=== PATIENT | female | born 1940 | race Caucasian/White ===

== ENCOUNTER → 2016-05-02 | Outpatient (CLI) | payer MEDICARE, OTHER, MEDICAID ==
[~2016-05-02] MED LIST: COREG 3.123.125 MG/T; FLEXERIL5 MG PO; FOLIC ACID0.4 MG PO; INFANTS AQU400 IU/ML PO; LOPID 600M600 MG/TAB PO; NORVASC2.5 MG PO; OXYCONTIN60 MG PO; VASOTEC 5MG5 MG/TAB PO; VITAMIN D1000 IU PO; VITAMIN K0.1 MG; VITAMINE200; XANAX .25M0.25 MG/TA PO
== END ==
LOC: COL.RAD 10:54
DX: G25.2 Other specified forms of tremor (principal)
CPT/HCPCS: A9584

== ENCOUNTER 2018-10-05 20:44 | Inpatient (IN) | payer MEDICARE, OTHER, MEDICAID ==
[~2018-10-05] VITALS: Ht 144.8 cm; Wt 54.5 kg
[~2018-10-05 20:44] MED LIST changes: +ANTIVERT 25MG25 MG PO; +COMPAZINE 110 MG/TAB PO; -COREG 3.123.125 MG/T; +COREG 3.123.125 MG/T PO; +CRANBERRY 100 M1 SGL PO; +DEMADEX 20MG20 M1 PO; +FLONASEALLERGY NS; +MIACALCIN NASA3.7 ML NS; +TIKOSYN0.125 MG PO; -VITAMIN D1000 IU PO; +VITAMIN E1000 U/CAP PO; -VITAMIN K0.1 MG; +VITAMIN K0.1 MG PO; +VITAMIND3 5000 PO; +[UNRECOGNIZED DRUG - OTHER]
[2018-10-05 21:43] LABS: BASO # 0.1 (0.0-0.2); BASO % 0.4 % (0.0-2.0); EOS # 0.2 (0.0-0.7); EOS % 1.8 % (0-4.0); GRAN # 7.1 (1.4-6.5); GRAN % 57.5 % (42.2-75.2); HEMATOCRIT 38.3 % (37.0-47.0); HEMOGLOBIN 12.4 g/dl (12.5-16.0); LYMPH # 3.8 (1.2-3.4); LYMPH % 30.9 % (20.0-51.0); MEAN CELL VOLUME 94 fl (80.0-100.0); MEAN CORPUSCULAR HEMOGLOBIN 30 pg (27.0-31.0); MEAN CORPUSCULAR HGB CONC 32 g/dl (33.0-37.0); MONO # 1.1 (0.1-0.6); MONO % 8.9 % (1.7-9.3); PLATELET COUNT 437 K/mm3 (130-400); RED BLOOD COUNT 4.08 M/mm3 (4.10-5.30); REDCELL DISTRIBUTION WIDTH-CV 17.1 % (11.5-14.5)
[2018-10-05 21:52] LABS: ALANINE AMINOTRANSFERASE < 6 U/L (9-52); ALBUMIN 4.3 gm/dL (3.5-5.0); ALKALINE PHOSPHATASE 140 U/L (50-136); ANION GAP 23 mmol/L (7-16); AST,SGOT 35 U/L (15-37); BILIRUBIN,TOTAL 0.4 mg/dL (0.0-1.0); BLOOD UREA NITROGEN 62 mg/dL (7-17); CARBON DIOXIDE 22 mmol/L (22-30); CHLORIDE 95 mmol/L (98-107); CREATININE, serum 3.72 (0.52-1.25); GLUCOSE 129 mg/dL (74-106); LIPASE 157 U/L (23-300); POTASSIUM 4.9 mmol/L (3.4-5.0); SODIUM 140 mmol/L (137-145); TOTAL PROTEIN 7.8 gm/dL (6.4-8.2)
[2018-10-05 22:29] LABS: COLLECTION METHOD CATHETER
[2018-10-05] MEDS ORDERED: TAZTIA120 PO (22:31)
[2018-10-05] MEDS ORDERED: AMBIEN 5MG TABLE5 MG PO (22:32)
[2018-10-05 22:36] LABS: MUCOUS Present /lpf; PH 5 (5-8); SQUAMOUS EPITHELIAL 0-2 /hpf; URINE APPEARANCE Cloudy; URINE BACTERIA Rare /hpf; URINE BILIRUBIN Negative (NEGATIVE); URINE BLOOD Negative (NEGATIVE); URINE COLOR Amber; URINE GLUCOSE Negative (NEGATIVE); URINE KETONE Negative (NEGATIVE); URINE LEUKOCYTE ESTERASE Negative (NEGATIVE); URINE NITRATE Negative (NEGATIVE); URINE PROTEIN(semi-quant) Negative (NEGATIVE); URINE UROBILINOGEN Negative (NEGATIVE)
[2018-10-05] MEDS ORDERED: TYLENOL 325MG325 MG PO (23:44)
[2018-10-05] MEDS ORDERED: POTASSIUM (23:46)
[2018-10-05 23:52] VITALS: BP 119/60; PULSE 88; TEMP 97.5
[2018-10-05] MEDS ORDERED: CLARITIN 1010 MG/TAB PO (23:53)
[2018-10-06] VITALS (8 sets, daily range): BP systolic 96–137; BP diastolic 47–81; PULSE 71–105; TEMP 97.5–98.1
--- NOTE | 2018-10-06 | NUR ---
PT RESTING IN BED A+OX4. REPORTS NO PAIN. NO SKIN BREAKDOWN OR IRRITATION NOTED. 20G IV IN RIGHT FAC FLUSHES WELL, NO REDNESS, SWELLING. LLL FINE CRACKLES. RLL CLEAR. UPPER LOBES CLEAR. TELE ON- HEART RRR. BOWEL SOUNDS AUDIBLE THORUGHOUT, ABD SOFT. NO EDEMA NOTED. TONY DRAINING FREELY, NO KINKS, SECURED TO LEG- 10ML CLEAR YELLOW URINE NOTED. NO NEEDS AT THIS TIME. CALL LIGHT IN REACH
[2018-10-06] MEDS ORDERED: TYLENOL #4 (1 UDTAB PO (01:02)
[2018-10-06] MEDS ORDERED: TYLENOL 500MG500 MG PO (01:06)
[2018-10-06] MEDS ORDERED: XANAX 0.5MG0.5 MG PO (01:08)
[2018-10-06] MEDS ORDERED: VASOTEC 10M10 MG/TAB PO (01:09)
[2018-10-06] MEDS ORDERED: FLEXERIL 1010 MG/TAB PO (01:10)
[2018-10-06] MEDS ORDERED: LASIX 20MG TABL20 MG PO (01:12)
[2018-10-06] MEDS ORDERED: FOLIC ACID0.4 MG PO (01:14)
[2018-10-06] MEDS ORDERED: K-DUR20 MEQ PO (01:17)
--- NOTE | 2018-10-06 05:41 | NUR ---
PT RESTING IN BED A+OX4. REPORTS NO PAIN. NO SLEEP. TELE ON. IV TO THE RIGHT FA, NO SWELLING. MINIMAL OUTPUT- 160 ML OUT. TONY DRAINING FREELY, NO KINKS- SECURED TO LEG.PEDAL AND RADIAL PULSES PALPATED 2+. NO EDEMA NOTED. LEFT LOWER LUNG FINE CRACKLES. RIGHT LOWER LUNG CLEAR. UPPER LOBES BILAT CLEAR. ROOM AIR. NO NEEDS AT THIS TIME. CALL LIGHT INR EACH
--- NOTE | 2018-10-06 07:00 | NUR ---
Report received from CODY Fernandez. pT in bed resting with IVF infusing, eden gonsales, will continue to monitor.
--- NOTE | 2018-10-06 07:09 | NUR ---
report given to vicki tong
[2018-10-06 07:44] LABS: BASO % 0.5 % (0.0-2.0); EOS # 0.3 (0.0-0.7); GRAN # 3.9 (1.4-6.5); GRAN % 52.8 % (42.2-75.2); LYMPH # 2.5 (1.2-3.4); LYMPH % 33.5 % (20.0-51.0); MEAN CELL VOLUME 95 fl (80.0-100.0); MEAN CORPUSCULAR HGB CONC 32 g/dl (33.0-37.0); MEAN PLATELET VOLUME 9.3 fl (7.4-10.4); MONO # 0.7 (0.1-0.6); MONO % 8.8 % (1.7-9.3); RED BLOOD COUNT 2.94 M/mm3 (4.10-5.30); REDCELL DISTRIBUTION WIDTH-CV 16.9 % (11.5-14.5)
[2018-10-06 07:51] LABS: HEMOGLOBIN 8.9 g/dl (12.5-16.0); MEAN CORPUSCULAR HEMOGLOBIN 30 pg (27.0-31.0)
[2018-10-06 07:52] LABS: PLATELET COUNT 242 K/mm3 (130-400)
[2018-10-06 07:54] LABS: ANION GAP 13 mmol/L (7-16); BLOOD UREA NITROGEN 59 mg/dL (7-17); CALCIUM 7.4 mg/dL (8.4-10.2); CARBON DIOXIDE 21 mmol/L (22-30); CHLORIDE 104 mmol/L (98-107); CREATININE, serum 3.07 (0.52-1.25); GLUCOSE 95 mg/dL (74-106); POTASSIUM 4.4 mmol/L (3.4-5.0); SODIUM 138 mmol/L (137-145)
[2018-10-06 07:56] LABS: ACETAMINOPHEN < 10 ug/mL (10-30)
[2018-10-06 08:36] LABS: CREATININE, serum 3.07 (0.52-1.25)
--- NOTE | 2018-10-06 09:03 | NUR ---
Assessment charted. FENA pulled from catheter and sent to lab. Urine is pale yellow and clear. Pt concerned about am meds being held. Discussed creatinine clearance. Denies needs, pain, IVF to R A/C. Will continue to monitor.
[2018-10-06 09:06] LABS: FRACTIONAL EXCRETION OF NA+ 3.8 %
--- NOTE | 2018-10-06 11:50 | NUR ---
Patient lives at home alone in [place], [place] and plans to return home upon recovery. Patient receives support as needed from her local friends especially from Melisa Gardiner ([phone]) and Wanda Madrigal ([phone]). Patient uses a cane for mobility assistance, her primary care physician is Dr. Torsten Scherer and Rodolfo Warren, her pharmacy is [facility], and she does not have advance directives of healthcare on file at this time. support services manager will follow as needed and no further needs at this time.
--- NOTE | 2018-10-06 17:13 | NUR ---
Pt in bed after showering this afternoon. Feeling well, good urine output from catheter today. Friends coming to visit so patient wanted to get cleaned up. Denies needs, will give bedside shift report to nightshift nurse who will resume care.
[2018-10-06] MEDS ORDERED: ELIDEL 100G TOP (21:30)
--- NOTE | 2018-10-06 21:45 | NUR ---
Patient laying in bed upon arrival to room. IV fluids running to RAC. Patient states she takes Elidel cream for Rosacea, Aida called and order received. Patient instructed to call when she is ready for her Ambien, as she didn't want to take it yet. Catheter patent, draining clear yellow urine. Denies pain. Denies any further needs. Will continue to monitor.
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
[2018-10-07 04:13] VITALS: BP 145/74; PULSE 81; TEMP 98.3
[2018-10-07 07:31] VITALS: BP 142/74; PULSE 83; TEMP 98.3
[2018-10-07 07:48] LABS: BASO % 0.5 % (0.0-2.0); EOS # 0.3 (0.0-0.7); EOS % 3.6 % (0-4.0); GRAN # 4.6 (1.4-6.5); GRAN % 62.2 % (42.2-75.2); LYMPH # 1.8 (1.2-3.4); LYMPH % 24.4 % (20.0-51.0); MEAN CELL VOLUME 97 fl (80.0-100.0); MEAN CORPUSCULAR HGB CONC 31 g/dl (33.0-37.0); MEAN PLATELET VOLUME 9.5 fl (7.4-10.4); MONO # 0.7 (0.1-0.6); MONO % 8.8 % (1.7-9.3); PLATELET COUNT 257 K/mm3 (130-400); RED BLOOD COUNT 3.11 M/mm3 (4.10-5.30); REDCELL DISTRIBUTION WIDTH-CV 16.1 % (11.5-14.5)
[2018-10-07 07:51] LABS: HEMOGLOBIN 9.4 g/dl (12.5-16.0); MEAN CORPUSCULAR HEMOGLOBIN 30 pg (27.0-31.0)
[2018-10-07 07:54] LABS: CALCIUM 7.5 mg/dL (8.4-10.2); CREATININE, serum 1.98 (0.52-1.25); POTASSIUM 3.6 mmol/L (3.4-5.0)
--- NOTE | 2018-10-07 11:19 | NUR ---
Pt assessment complete and charted. Pt A&O. Pt denies SOB, N/V. Pt c/o some "dizziness yesterday" when walking to door with therapy. Pt c/o pain in both feet, greater in right. Pain is a stabbing/shooting/burning pain that is between big toe and second toe. Pt has pain upon flexion and extension of feet, c/o of pain when walking, states it is "new and started last night". Pt on room air. LFA IV w/ 125 ml/hr running w/ no complications. This nurse discussed w/ SOY Latham about pain in feet, they will discuss with patient. No other needs at this time.
--- NOTE | 2018-10-07 11:52 | NUR ---
This nurse arrived to pt room w/ aide in room assisting pt in bathroom, pt already on toilet. Per pt she called to go to the bathroom but "couldn't wait because I have Chron's and needed to go". Per aide and pt, pt fell on to her knees when she arrived to bathroom, masterson catheter tubing got caught up w/ walker. Walker was turned around. Pt denied any pain, no injuries noted. No witness to patient fall. SOY Latham notified, Reports filled out.
[2018-10-07 11:59] VITALS: BP 137/78; PULSE 88; TEMP 98.6
--- NOTE | 2018-10-07 12:26 | NUR ---
Pt zelalem cummings'd per orders w/ no complications. Pt administered PRN Xanax, pt is having quite a bit of anxiety since visiting with doctor. Pt apologizing for being emotional and complaining. Lunch delivered, pt set up in bed. Call light within reach and bed alarm on.
--- NOTE | 2018-10-07 13:56 | NUR ---
RT informed this nurse that pt had an abnormal EKG. Pt is getting EKG prior to amio administration and 4 hours after. This nurse notified Crys doran/ Dr. sebastian of EKG. Verbal order to give amiodarone as scheduled.
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
[2018-10-07 15:45] VITALS: BP 130/80; PULSE 81; TEMP 98.3
[2018-10-07 17:57] VITALS: BP 137/78; PULSE 88; TEMP 98.6
--- NOTE | 2018-10-07 19:05 | NUR ---
Pt up to bathroom twice this afternoon. This nurse was in room for first time. Pt did not wait second time or use call light. Bed alarm went off, aide went to room to assist. 1 output this afternoon was about 200ml. Second output unrecorded due to patient putting tp in hat. Bed alarm on and pt reminded to use call light. Aministered PRN tylenol w/ codeine. Pt c/o feet pain, rating it 10/10.
[2018-10-07 19:23] VITALS: BP 142/59; PULSE 74; TEMP 99
--- NOTE | 2018-10-07 22:15 | NUR ---
PT RESTING IN BED A+OX4. REPORTS 10/10 PAIN IN FEEL- PRN MEDS GIVEN. IV FLUSHES WELL, NO REDNESS. PEDAL AND RADIAL PULSES PALPATED. LUNGS CLEAR X4. BOWEL SOUNDS HEARD THROUGHOUT. TELE ON. AMIO GIVEN AT 1400- HOLDING NEXT DOES FOR 0000. PT REPORTS NO NEEDS AT THIS TIME. [facility]. FALL PRECAUTIONS IN PLACE. BED ARLM ON
[2018-10-08 00:05] VITALS: BP 157/80; PULSE 75; TEMP 98.1
[2018-10-08 02:08] LABS: FOLATE (FOLIC ACID) 19.3 ng/mL (7.0-31.4)
[2018-10-08 04:42] VITALS: BP 155/82; PULSE 102; TEMP 98
--- NOTE | 2018-10-08 04:55 | NUR ---
PT HAD AN UNEVENTFUL NIGHT. REPORTING 10/10 PAIN DURING NIGHT IN BILAT FEET. REPORTS "I BELIEVE IT IS GOUT, I NEED ARTHRITIS CREAM" VSS. PT ON ROOM AIR. IV FLUSHES WELL, NO REDNESS, NO SWELLING. IV FLUIDS RUNNING AT ORDERED RATE. FALL PRECAUTIONS IN PLACE, BED AALRM ON. GAIT BELT USED. WALKER USED. NON SLIP SOCKS ON. NO NEEDS AT THIS TIME. CALL LIGHT IN REACH
[2018-10-08 06:17] LABS: CALCIUM 7.9 mg/dL (8.4-10.2); CREATININE, serum 1.54 (0.52-1.25); MAGNESIUM 1.3 mg/dL (1.6-2.3); POTASSIUM 3.6 mmol/L (3.4-5.0)
[2018-10-08 06:32] LABS: BASO % 0.4 % (0.0-2.0); EOS # 0.2 (0.0-0.7); EOS % 2.6 % (0-4.0); GRAN # 5.1 (1.4-6.5); GRAN % 63.9 % (42.2-75.2); LYMPH # 1.9 (1.2-3.4); LYMPH % 23.3 % (20.0-51.0); MEAN CELL VOLUME 97 fl (80.0-100.0); MEAN CORPUSCULAR HGB CONC 30 g/dl (33.0-37.0); MEAN PLATELET VOLUME 9.7 fl (7.4-10.4); MONO # 0.7 (0.1-0.6); MONO % 9.3 % (1.7-9.3); PLATELET COUNT 262 K/mm3 (130-400); RED BLOOD COUNT 2.95 M/mm3 (4.10-5.30); REDCELL DISTRIBUTION WIDTH-CV 15.9 % (11.5-14.5)
[2018-10-08 06:48] LABS: HEMATOCRIT 28.7 % (37.0-47.0); HEMOGLOBIN 8.7 g/dl (12.5-16.0); MEAN CORPUSCULAR HEMOGLOBIN 29 pg (27.0-31.0)
--- NOTE | 2018-10-08 07:02 | NUR ---
REPORT GIVEN TO CODY HUANG
--- NOTE | 2018-10-08 08:15 | NUR ---
Assessment complete. Pt sitting up in bed, A&O x 3. Breath sounds CTAB. BS active x 4. Pt reports pain 10 out of 10 to bilat feet. IVF's disconnected for procedure. IV site in left forearm without s/s of complications. No further needs reported. Call light in reach.
[2018-10-08 09:44] VITALS: BP 148/89; PULSE 91; TEMP 98.4
[2018-10-08 12:07] VITALS: BP 155/75; PULSE 97; TEMP 97.7
--- NOTE | 2018-10-08 14:00 | NUR ---
PRN analgesic ointment applied to bilat feet per pt's request. No further needs reported. Call light in reach.
[2018-10-08 17:10] VITALS: BP 119/54; PULSE 72; TEMP 98.4
[2018-10-08 19:42] VITALS: BP 146/81; PULSE 72; TEMP 98.3
--- NOTE | 2018-10-08 20:00 | NUR ---
Report received from CODY Coats. Patient resting in bed. Vitals within normal limits. Patient denies having any pain. IV patent, flushed. Requests PRN Flexeril. Requests to take ambien closer to bedtime because she was not tired yet. Patient denies any further needs at this time. Call light within reach.
[2018-10-09 00:31] VITALS: BP 158/74; PULSE 71; TEMP 98.3
[2018-10-09 04:14] VITALS: BP 139/70; PULSE 59; TEMP 97.8
--- NOTE | 2018-10-09 06:07 | NUR ---
Patient had uneventful night. PRN flexeril given. Resting in bed. Call light within reach.
[2018-10-09 06:15] LABS: BASO % 0.6 % (0.0-2.0); EOS # 0.3 (0.0-0.7); EOS % 6.1 % (0-4.0); GRAN % 54.8 % (42.2-75.2); LYMPH # 1.5 (1.2-3.4); LYMPH % 26.8 % (20.0-51.0); MEAN CELL VOLUME 97 fl (80.0-100.0); MEAN CORPUSCULAR HGB CONC 31 g/dl (33.0-37.0); MEAN PLATELET VOLUME 9.6 fl (7.4-10.4); MONO # 0.6 (0.1-0.6); MONO % 11.3 % (1.7-9.3); PLATELET COUNT 244 K/mm3 (130-400); RED BLOOD COUNT 2.79 M/mm3 (4.10-5.30); REDCELL DISTRIBUTION WIDTH-CV 15.9 % (11.5-14.5)
[2018-10-09 06:17] LABS: HEMOGLOBIN 8.4 g/dl (12.5-16.0); MEAN CORPUSCULAR HEMOGLOBIN 30 pg (27.0-31.0)
[2018-10-09 06:28] LABS: CALCIUM 8.1 mg/dL (8.4-10.2); CREATININE, serum 1.61 (0.52-1.25); MAGNESIUM 1.9 mg/dL (1.6-2.3); POTASSIUM 3.8 mmol/L (3.4-5.0)
--- NOTE | 2018-10-09 06:52 | NUR ---
Report given to CODY Coats.
[2018-10-09 07:22] VITALS: BP 137/71; PULSE 66; TEMP 98.1
--- NOTE | 2018-10-09 08:30 | NUR ---
Assessment complete. Pt sitting up in bed, A&O x 4. Breath sounds CTAB. BS active x 4. Pt reports pain to bilat feet 8 out of 10, states "better than yesterday, I have been alternating the ointments like the doctor said I could do." Saline lock IV to left forearm without s/s of complications. Pt wearing personal pajamas, refusing to wear yellow gown and yellow slipper socks. Pt reminded of the need to call for help prior to getting up. Bed alarm on.
--- NOTE | 2018-10-09 10:00 | NUR ---
MANAGER CAREER reports pt taking gait belt off in the bathroom and insisting we don't need it.
--- NOTE | 2018-10-09 10:16 | NUR ---
FRANTZ attended clinical rounds. The hospitalist discussed getting home health set up for medication management and therapy. The patient reports that she has had shelter in the past from [facility] and would be agreeable to their services again. FRANTZ then followed up with the patient to review discharge plan and to discuss PT/OT recommendation of home health vs considering SNF. The patient reports that she wants to go home, but would be agreeable to home health for shelter. The patient began to appear upset and reports that she that she gets around just fine and does not need PT/OT. FRANTZ contacted and faxed a referral to [facility]. SW awaiting their screening.
--- NOTE | 2018-10-09 11:16 | NUR ---
Erica, at [facility], reports that they can accept the patient for services. SW to inform the patient and will continue to follow.
[2018-10-09 11:29] VITALS: BP 170/7; BP 170/72; PULSE 78; TEMP 98.8
--- NOTE | 2018-10-09 15:46 | NUR ---
The patient is to tentatively discharge tomorrow, 10/10. SW presented and explained the IM form to the patient. The patient verbalized understanding, signed, and she was provided a copy.
[2018-10-09 16:55] VITALS: BP 150/92; PULSE 92; TEMP 97.5
--- NOTE | 2018-10-09 19:00 | NUR ---
Report with CODY Woodruff. Pt sitting up in bed, clarifies medication needs at this time. No further needs reported. Call light in reach. Bed alarm on.
[2018-10-09 19:37] VITALS: BP 156/81; PULSE 79; TEMP 98.5
--- NOTE | 2018-10-09 21:53 | NUR ---
PT IN BED WTIH HOB ELEVATED TO 30 DEGREE ANGLE. PT'S FEET HAS +3 EDEMA AND STILL HAS PAIN RATED A 9/10. GAVE TYLENOL 3 AND FLEXERIL PO PATIENT REQUESTED FOR PAIN. PT ADVISES THAT SHE TAKES HER MEDICATION THAT WAY AT HOME ALL THE TIME. NO OTHER NEEDS AT THIS TIME, CALL LIGHT WITHIN REACH.
[2018-10-09 23:52] LABS: COMPLEMENT-C3 165 mg/dL (79-152); COMPLEMENT-C4 29 mg/dL (18-55)
[2018-10-10 00:18] VITALS: BP 143/71; PULSE 66; TEMP 97.8
--- NOTE | 2018-10-10 00:57 | NUR ---
PT SLEEPING IN BED WITH HOB ELEVATED TO 45 DEGREE ANGLE, WITH TV ON. PT EASILY AWAKENS. PT ADVISES THAT PAIN IS STILL THE SAME FOR HER, BUT SHE WAS ASLEEP. PT WAS ANNOYED WITH NEURO CHECKS. PT ADVISES THAT SHE WAS GOING TO TRY AND GO BACK TO SLEEP. NO NEEDS AT THIS TIME, CALL LIGHT WITHIN REACH.
[2018-10-10 04:00] VITALS: BP 147/89; PULSE 68; TEMP 98.3
--- NOTE | 2018-10-10 07:06 | NUR ---
UNEVENTFUL NIGHT, PT'S PAIN IN BILATERAL FEET NEVER WENT DOWN FROM A 9/10 EVEN AFTER GIVING PAIN MEDICATION. PT DID SLEEP SOME AND IS NOW SLEEPING. CALL LIGHT WITHIN REACH.
[2018-10-10 07:26] VITALS: BP 139/83; PULSE 65; TEMP 97.7
--- NOTE | 2018-10-10 07:37 | NUR ---
Pt assessment complete. Pt laying in bed upon entry, she is A/O x3. Her breathing is even and unlabored on RA. Pt denies SOB. Pt reports pain to bilateral feet, feet edematous no redness. Medications administered per MAR. When patient asked if she would like anything else she states "it doesn't matter I'm going home anyway". POC discussed with patient who verbalizes understanding. She has no further needs. Call light within reach. Will continue to monitor.
[2018-10-10 08:23] LABS: BASO # 0.1 (0.0-0.2); BASO % 0.9 % (0.0-2.0); EOS # 0.5 (0.0-0.7); EOS % 8.3 % (0-4.0); HEMATOCRIT 30.3 % (37.0-47.0); HEMOGLOBIN 9.4 g/dl (12.5-16.0); LYMPH # 1.6 (1.2-3.4); LYMPH % 28.2 % (20.0-51.0); MEAN CELL VOLUME 97 fl (80.0-100.0); MEAN CORPUSCULAR HEMOGLOBIN 30 pg (27.0-31.0); MEAN CORPUSCULAR HGB CONC 31 g/dl (33.0-37.0); MEAN PLATELET VOLUME 9.7 fl (7.4-10.4); MONO # 0.5 (0.1-0.6); MONO % 9.4 % (1.7-9.3); PLATELET COUNT 317 K/mm3 (130-400); RED BLOOD COUNT 3.13 M/mm3 (4.10-5.30); REDCELL DISTRIBUTION WIDTH-CV 16.1 % (11.5-14.5)
[2018-10-10 08:31] LABS: CALCIUM 8.8 mg/dL (8.4-10.2); CREATININE, serum 1.37 (0.52-1.25); POTASSIUM 4.1 mmol/L (3.4-5.0)
[2018-10-10] MEDS ORDERED: B-121000 MCG PO (09:37)
--- NOTE | 2018-10-10 11:24 | NUR ---
SW met with the patient to review discharge plan and discussed SNF vs home health again. The patient reports that she still wants to return home and is only agreeable to home health for penitentiary. Clinical team is aware of this. The patient shared frustrations that she has with her PCP. SW discussed getting set up with a different PCP. The patient reports that she will be fine and will continue receiving care from her current PCP. SW provided support. The patient is to discharge back home today, 10/10, with home health services for penitentiary through [facility]. The patient states that her friend, Ivon, will provide transport. No additional needs at this time.
[2018-10-10 11:54] VITALS: BP 160/76; PULSE 74; TEMP 98.8
[2018-10-10] MEDS ORDERED: CORDARONE200 MG/TAB PO (13:34)
--- NOTE | 2018-10-10 15:05 | NUR ---
Discharge instructions reviewed with patient, all questions answered at this time. IV to LFA dc'd catheter tip intact. Pt had small skin tear prior to removal of adhesive, dressing provided. Pt wheeled out of facility at this time.
[2018-10-10 23:32] LABS: C-ANCA 27 U/mL (0-99)
[2018-10-11 01:45] LABS: ANA SCREEN with REFLEX Positive (Negative)
[2018-10-12 00:48] LABS: ANTISCLERODERMA-70 AB XXX; CENTROMERE ANTIBODIES XXX; U1 RNP AUTOANTIBODIES XXX
== END 2018-10-10 15:10 | disposition home or self-care (01) | DRG 683 ==
LOC: COL.ER 20:44 → MEDICAL 22:45
PROVIDERS: Emergency Medicine; Internal Medicine Nephrology; Nurse Practitioner Family; Physician Assistant; Student in an Organized Health Care Education/Training Program; ADMIT Family Medicine
DX: N17.9 Acute kidney failure, unspecified (principal); E87.2 Acidosis; I42.9 Cardiomyopathy, unspecified; I47.1 Supraventricular tachycardia; I13.0 Hypertensive heart and chronic kidney disease with heart failure and stage 1 through stage 4 chronic kidney disease, or unspecified chronic kidney disease; E11.22 Type 2 diabetes mellitus with diabetic chronic kidney disease; N18.9 Chronic kidney disease, unspecified; I48.91 Unspecified atrial fibrillation; I50.9 Heart failure, unspecified; T46.2X5A Adverse effect of other antidysrhythmic drugs, initial encounter; D72.829 Elevated white blood cell count, unspecified; R42 Dizziness and giddiness; E78.5 Hyperlipidemia, unspecified; I25.10 Atherosclerotic heart disease of native coronary artery without angina pectoris; M10.9 Gout, unspecified; Z95.0 Presence of cardiac pacemaker; I44.7 Left bundle-branch block, unspecified; M32.9 Systemic lupus erythematosus, unspecified; M21.612 Bunion of left foot; M21.611 Bunion of right foot; Z79.51 Long term (current) use of inhaled steroids; Z79.891 Long term (current) use of opiate analgesic; Z60.2 Problems related to living alone; Z87.891 Personal history of nicotine dependence
CPT/HCPCS: 99222-AI; 99232-AI; 99239; J1644; J1650; J2405; J3420; J3475; J7030